=== PATIENT | female | born 1990 | race American Indian/Alaskan Native ===

== ENCOUNTER 2020-04-28 13:45 | Emergency (ER) | payer SELFPAY ==
[2020-04-28 13:54] VITALS: BP 132/86
== END 2020-04-28 16:34 | disposition left against medical advice (07) ==
LOC: ED 13:45
DX: R25.2 Cramp and spasm (principal); Z53.21 Procedure and treatment not carried out due to patient leaving prior to being seen by health care provider

== ENCOUNTER 2020-06-07 07:29 | Emergency (ER) | payer MEDICAID ==
--- NOTE | 2020-06-07 08:57 | Emergency Department Report ---
ED HPI - General Chief complaint: Abdominal Pain Stated complaint: 9WKS PREG CRAMPING Time Seen by Provider: 06/07/20 08:33 Source: patient Mode of arrival: Ambulatory Limitations: No Limitations - History of Present Illness Initial comments: This is a 30-year-old female nontoxic, well nourished in appearance, no acute signs of distress presents to the ED with c/o of vaginal bleeding and pelvic pain x1 day. Patient stated yesterday she noticed some spotting last night.. Patient denies any upper abdominal pain. Patient denies any vaginal discharge or foul odor. Stated she goes about 1-2 pads in 24 hours. Patient denies any nausea, vomiting, chest pain, shortness of breathe, fever, chills, headache, stiff neck, numbness, tingling. Patient denies any urinary symptoms. Patient denies any allergies or PMH. MD Complaint: vaginal bleeding -: days(s) Location: pelvis Radiation: none Severity: mild Severity scale (0 -10): 3 Quality: cramping, aching Consistency: constant Improves with: none Worsens with: none Associated symptoms: vaginal bleeding. denies: nausea/vomiting, vaginal discharge, abdominal pain, dysuria, headache, vision changes, malaise, dy sparuenia, rash, seizure, shortness of breath, syncope, weakness Vaginal bleeding: light :: Yes Number of weeks : 9 Pre-sb care: followed by OB - Related Data Previous Rx's Medication Instructions Recorded Last Taken Type Nitrofurantoin Otoe/M-Cryst 100 mg PO Q12HR #14 capsule 06/07/20 Unknown Rx [Macrobid CAP] Allergies Allergy/AdvReac Type Severity Reaction Status Date / Time No Known Allergies Allergy Unverified 04/28/20 13:51 ED Review of Systems ROS: Stated complaint: 9WKS PREG CRAMPING Other details as noted in HPI Comment: All other systems reviewed and negative Constitutional: denies: chills, fever Eyes: denies: eye pain, eye discharge, vision change ENT: denies: ear pain, throat pain Respiratory: denies: cough, shortness of breath, wheezing Cardiovascular: denies: chest pain, palpitations Endocrine: no symptoms reported Gastrointestinal: denies: abdominal pain, nausea, diarrhea Genitourinary: abnormal menses. denies: urgency, dysuria, frequency, hematuria, discharge Musculoskeletal: denies: back pain, joint swelling, arthralgia Skin: denies: rash, lesions Neurological: denies: headache, weakness, paresthesias Psychiatric: denies: anxiety, depression Hematological/Lymphatic: denies: easy bleeding, easy bruising ED Past Medical Hx - Past Medical History Previous Medical History?: No - Surgical History Past Surgical History?: No - Social History Smoking Status: Never Smoker Substance Use Type: None - Medications Home Medications: Home Medications Medication Instructions Recorded Confirmed Last Taken Type Nitrofurantoin Otoe/M-Cryst 100 mg PO Q12HR #14 capsule 06/07/20 Unknown Rx [Macrobid CAP] ED Physical Exam - General Limitations: No Limitations General appearance: alert, in no apparent distress - Head Head exam: Present: atraumatic, normocephalic - Eye Eye exam: Present: normal appearance - Neck Neck exam: Present: normal inspection, full ROM - Respiratory Respiratory exam: Present: normal lung sounds bilaterally. Absent: respiratory distress, wheezes, rales, rhonchi, stridor, chest wall tenderness, accessory muscle use, decreased breath sounds, prolonged expiratory - Cardiovascular Cardiovascular Exam: Present: regular rate, normal rhythm, normal heart sounds. Absent: bradycardia, tachycardia, irregular rhythm, systolic murmur, diastolic murmur, rubs, gallop - GI/Abdominal GI/Abdominal exam: Present: soft, normal bowel sounds. Absent: distended, tenderness, guarding, rebound, rigid, diminished bowel sounds - Extremities Exam Extremities exam: Present: full ROM - Back Exam Back exam: Present: normal inspection, full ROM. Absent: tenderness, CVA tenderness (R), CVA tenderness (L), muscle spasm, paraspinal tenderness, vertebral tenderness, rash noted - Neurological Exam Neurological exam: Present: alert, oriented X3, normal gait - Psychiatric Psychiatric exam: Present: normal affect, normal mood - Skin Skin exam: Present: warm, dry, intact, normal color. Absent: rash ED Course Vital Signs 06/07/20 07:31 Temperature 98.5 F Pulse Rate 89 Respiratory 16 Rate Blood Pressure 121/84 O2 Sat by Pulse 100 Oximetry - Reevaluation(s) Reevaluation #1: 06/07/20 08:57 Patient is speaking in full sentences with no signs of distress noted. ED Medical Decision Making - Lab Data Result diagrams: 06/07/20 09:02 Lab Results 06/07/20 06/07/20 06/07/20 Range/Units 09:02 09:02 09:02 WBC 5.7 (4.5-11.0) K/mm3 RBC 5.22 H (3.65-5.03) M/mm3 Hgb 12.4 (10.1-14.3) gm/dl Hct 38.3 (30.3-42.9) % MCV 73 L (79-97) fl MCH 24 L (28-32) pg MCHC 32 (30-34) % RDW 18.0 H (13.2-15.2) % Plt Count 329 (140-440) K/mm3 Lymph % (Auto) 33.8 (13.4-35.0) % O[place] % (Auto) 7.9 H (0.0-7.3) % Eos % (Auto) 0.6 (0.0-4.3) % Baso % (Auto) 0.7 (0.0-1.8) % Lymph # (Auto) 1.9 (1.2-5.4) K/mm3 [place] # (Auto) 0.5 (0.0-0.8) K/mm3 Eos # (Auto) 0.0 (0.0-0.4) K/mm3 Baso # (Auto) 0.0 (0.0-0.1) K/mm3 Seg Neutrophils % 57.0 (40.0-70.0) % Seg Neutrophils # 3.3 (1.8-7.7) K/mm3 HCG, Quant 712720 H (0-4) mIU/mL Urine Color (Yellow) Urine Turbidity (Clear) Urine pH (5.0-7.0) Ur Specific [place] (1.003-1.030) Urine Protein (Negative) mg/dL Urine Glucose (UA) (Negative) mg/dL Urine Ketones (Negative) mg/dL Urine Blood (Negative) Urine Nitrite (Negative) Urine Bilirubin (Negative) Urine Urobilinogen (<2.0) mg/dL Ur Leukocyte Esterase (Negative) Urine WBC (Auto) (0.0-6.0) /HPF Urine RBC (Auto) (0.0-6.0) /HPF U Epithel Cells (Auto) (0-13.0) /HPF Urine Mucus /HPF Blood Type O NEGATIVE 06/07/20 Range/Units 10:06 WBC (4.5-11.0) K/mm3 RBC (3.65-5.03) M/mm3 Hgb (10.1-14.3) gm/dl Hct (30.3-42.9) % MCV (79-97) fl MCH (28-32) pg MCHC (30-34) % RDW (13.2-15.2) % Plt Count (140-440) K/mm3 Lymph % (Auto) (13.4-35.0) % [place] % (Auto) (0.0-7.3) % Eos % (Auto) (0.0-4.3) % Baso % (Auto) (0.0-1.8) % Lymph # (Auto) (1.2-5.4) K/mm3 [place] # (Auto) (0.0-0.8) K/mm3 Eos # (Auto) (0.0-0.4) K/mm3 Baso # (Auto) (0.0-0.1) K/mm3 Seg Neutrophils % (40.0-70.0) % Seg Neutrophils # (1.8-7.7) K/mm3 HCG, Quant (0-4) mIU/mL Urine Color Yellow (Yellow) Urine Turbidity Hazy (Clear) Urine pH 7.0 (5.0-7.0) Ur Specific [place] 1.018 (1.003-1.030) Urine Protein 30 mg/dl (Negative) mg/dL Urine Glucose (UA) Neg (Negative) mg/dL Urine Ketones Tr (Negative) mg/dL Urine Blood Mod (Negative) Urine Nitrite Neg (Negative) Urine Bilirubin Neg (Negative) Urine Urobilinogen < 2.0 (<2.0) mg/dL Ur Leukocyte Esterase Sm (Negative) Urine WBC (Auto) 7.0 H (0.0-6.0) /HPF Urine RBC (Auto) 1.0 (0.0-6.0) /HPF U Epithel Cells (Auto) 16.0 H (0-13.0) /HPF Urine Mucus Few /HPF Blood Type - Radiology Data [facility] [address] [place] [address] Ultrasound Report Signed Patient: HOSEA APPIAH MR#: [id number] : 1990 Acct:[id number] Age/Sex: 30 / F ADM Date: 06/07/20 Loc: ED Attending Dr: Ordering Physician: HECTOR SANTANA NP Date of Service: 06/07/20 Procedure(s): US OB <= 14 weeks fetus Accession Number(s): [id number] cc: HECTOR SANTANA NP FIRSTTRIMESTER OBSTETRIC ULTRASOUND HISTORY: Vaginal bleeding with pelvic pain during COMPARISON: None. TECHNIQUE: Routine transabdominal OB ultrasound performed. FINDINGS: Uterus: Mildly enlarged measuring 12.9 x 5.5 x 7.7 cm. Gestational Sac: Well-defined oval shape and intrauterine in location. Yolk Sac: Normal in appearance. Fetus/Embryo: [place]-rump length of 2.88 cm, corresponding to an estimated gestational age of 9 weeks 5 days. Embryonic/ anatomy is too small for evaluation. Embryonic/ cardiac activity: 171bpm Placenta: Too small for evaluation. Amniotic fluid volume: Subjectively appropriate for gestational age. Ovaries: The right ovary measures 3.8 x 2.9 x 4.0 cm and contains a 2.6 cm simple appearing cyst. The left ovary is unremarkable measuring 3.2 x 1.5 x 4.0 cm. Additional findings: 2 small subchorionic hemorrhages are identified along the inferior and superior borders of the gestational sac. IMPRESSION Early live intrauterine . 2 small subchorionic hemorrhages are identified. 2.6 cm right ovarian cyst. Signer Name: Abel Starks Jr, MD Signed: 06/07/2020 10:21 AM Workstation Name: [id number] Transcribed By: TTR Dictated By: ABEL STARKS JR, MD Electronically Authenticated By: ABEL STARKS JR, MD Signed Date/Time: 06/07/20 1021 DD/ 1017 TD/TT: - Medical Decision Making This is a 30-year-old female presents with threatened miscarriage and UTI. Patient is stable and was examined by me. Normal abdominal exam. US OB obtained and dictated by the radiologist. Ua obtained. Quantative serum test obtained. Patient notified of the US report with no questions noted by the patient. Patient was instructed f/u with COUNSELING SERVICES DIRECTOR in 3-5 days. RH factor negative and patient stated that she recently got a RhoGam shot by her COUNSELING SERVICES DIRECTOR for this . Labs within normal limits. At time of discharge, the patient does not seem toxic or ill in appearance. No acute signs of distress noted. Patient agrees to discharge treatment plan of care. No further questions noted by the patient. Critical care attestation.: If time is entered above; I have spent that time in minutes in the direct care of this critically ill patient, excluding procedure time. ED Disposition Clinical Impression: Threatened miscarriage UTI (urinary tract infection) Qualifiers: Urinary tract infection type: acute cystitis Hematuria presence: without hematuria Qualified Code(s): N30.00 - Acute cystitis without hematuria Rh negative status during Qualifiers: Trimester: first trimester Qualified Code(s): O26.891 - Other specified related conditions, first trimester Disposition: TO HOME OR SELFCARE Is pt being admited?: No Does the pt Need Aspirin: No Condition: Stable Instructions: Threatened Miscarriage, Urinary Tract Infection, Adult, Abdominal Pain (ED) Additional Instructions: Follow-up with a COUNSELING SERVICES DIRECTOR doctor in 3-5 days or if symptoms worsen and continue return to emergency room as soon as possible. Prescriptions: Nitrofurantoin Otoe/M-Cryst [Macrobid CAP] 100 mg PO Q12HR #14 capsule Referrals: PRIMARY CARE, [Referring] - 3-5 Days [facility] [Provider Group] - 3-5 Days [facility] [Provider Group] - 3-5 Days [facility] [Provider Group] - 3-5 Days Forms: Work/School Release Form(ED) Time of Disposition: 11:36
[2020-06-07 09:15] LABS: Basophils % (Auto) 0.7 % (0.0-1.8); Eosinophils % (Auto) 0.6 % (0.0-4.3); Hematocrit 38.3 % (30.3-42.9); Hemoglobin 12.4 gm/dl (10.1-14.3); Lymphocytes # (Auto) 1.9 K/mm3 (1.2-5.4); Lymphocytes % (Auto) 33.8 % (13.4-35.0); Mean Corpuscular HGB Conc 32 % (30-34); Mean Corpuscular Volume 73 fl (79-97); Monocytes # (Auto) 0.5 K/mm3 (0.0-0.8); Monocytes % (Auto) 7.9 % (0.0-7.3); Platelet Count 329 K/mm3 (140-440); Red Blood Count 5.22 M/mm3 (3.65-5.03)
--- NOTE | 2020-06-07 10:26 | Ultrasound Report ---
FIRSTTRIMESTER OBSTETRIC ULTRASOUND HISTORY: Vaginal bleeding with pelvic pain during COMPARISON: None. TECHNIQUE: Routine transabdominal OB ultrasound performed. FINDINGS: Uterus: Mildly enlarged measuring 12.9 x 5.5 x 7.7 cm. Gestational Sac: Well-defined oval shape and intrauterine in location. Yolk Sac: Normal in appearance. Fetus/Embryo: [place]-rump length of 2.88 cm, corresponding to an estimated gestational age of 9 weeks 5 days. Embryonic/ anatomy is too small for evaluation. Embryonic/ cardiac activity: 171bpm Placenta: Too small for evaluation. Amniotic fluid volume: Subjectively appropriate for gestational age. Ovaries: The right ovary measures 3.8 x 2.9 x 4.0 cm and contains a 2.6 cm simple appearing cyst. The left ovary is unremarkable measuring 3.2 x 1.5 x 4.0 cm. Additional findings: 2 small subchorionic hemorrhages are identified along the inferior and superior borders of the gestational sac. IMPRESSION Early live intrauterine . 2 small subchorionic hemorrhages are identified. 2.6 cm right ovarian cyst. Signer Name: Abel Stallings Jr, MD Signed: 06/07/2020 10:21 AM Workstation Name: [id number]
[2020-06-07 10:35] LABS: Bilirubin,Urine NEG (Negative); Blood,Urine MOD (Negative); Color,Urine Yellow (Yellow); Mucus,Urine FEW /HPF; Urobilinogen,Urine < 2.0 mg/dL (<2.0)
[2020-06-07 11:51] VITALS: BP 121/87
== END 2020-06-07 11:51 | disposition home or self-care (01) ==
LOC: ED 07:29
DX: O20.0 Threatened abortion (principal); O23.41 Unspecified infection of urinary tract in pregnancy, first trimester; O26.891 Other specified pregnancy related conditions, first trimester; Z3A.09 9 weeks gestation of pregnancy; Z79.899 Other long term (current) drug therapy
CPT/HCPCS: 36415; 76801; 81001; 84702; 85025; 86850; 86900; 86901

== ENCOUNTER 2020-12-22 09:27 | Inpatient (IN) | payer MEDICAID ==
[2020-12-22] MEDS ORDERED: miSOPROStol 200 MCG TAB PR PRN (10:00)
[2020-12-22] MEDS ORDERED: OXYTOCIN DRIP 30 UNITS/500 ML BAG IV SCH ×2 (10:00→16:00)
[2020-12-22] MEDS ORDERED: ACETAMINOPHEN 325 MG TAB PO PRN (10:00)
[2020-12-22] MEDS ORDERED: fentaNYL 100 MCG/2 ML INJ IV PRN (10:00)
[2020-12-22] MEDS ORDERED: LIDOCAINE (2%) 20 MG/1 ML VIAL 20 ML MDV INFILTRATI SCH (10:00)
[2020-12-22] MEDS ORDERED: MINERAL OIL 30 ML ORAL LIQD PO PRN (10:00)
[2020-12-22] MEDS ORDERED: ePHEDrine SULFATE 50 MG/1 ML INJ IV PRN ×2 (10:00→11:00)
[2020-12-22] MEDS ORDERED: BUTORPHANOL 2 MG/1 ML INJ IV PRN (10:00)
[2020-12-22] MEDS ORDERED: NalbUPHINE 10 MG/1 ML INJ IV PRN ×2 (10:00→11:30)
[2020-12-22] MEDS ORDERED: OXYTOCIN 10 UNIT/1 ML INJ IM PRN (10:00)
[2020-12-22] MEDS ORDERED: ONDANSETRON 4 MG/2 ML INJ IV PRN ×2 (10:00→11:00)
[2020-12-22] MEDS ORDERED: METHYLERGONOVINE MALEATE 0.2 MG/ML VIAL IM PRN (10:00)
[2020-12-22] MEDS ORDERED: CARBOPROST TROMETHAMINE 250 MCG/1 ML INJ IM PRN (10:00)
[2020-12-22] MEDS ORDERED: TERBUTALINE 1 MG/1 ML INJ SUB-Q PRN (10:00)
[2020-12-22] MEDS ORDERED: AMPICILLIN/NS 2 GM/100 ML 2 GM/100 ML BAG IV SCH (10:00)
[2020-12-22] MEDS ORDERED: LOPERAMIDE 2 MG CAP PO PRN (10:00)
--- NOTE | 2020-12-22 10:16 | History and Physical Report ---
History of Present Illness Date of examination: 12/22/20 Date of admission: 12/22/2020 Chief complaint: Painful ctxs History of present illness: 30 yo, @ 37.5 wks, initiated care with [place] [facility] professor of biological sciences at 11.4 wks gestation. has been complicated by +GBS in urine, Rh negative status, rubella non-immune status, contractions and silent alpha thalessemia carrier status. She reports to [facility] with reports of frequent painful ctxs and was found to have cervical dilation of 6cm per RN. Reports +FM. Denies VB or LOF at this time. Labs: O negative, antibody negative; HBsAg negative; HIV negative; rubella non-immune; VDRL negative; GC/Chlamydia/Trich negative; 1 hr gtt - 84; GBS positive. Past History Past Medical History: no pertinent history Past Surgical History: no surgical history Family/Genetic History: diabetes Social history: single, lives with family, full code. denies: smoking, alcohol abuse, prescription drug abuse, IV drug use - Obstetrical History Expected Date of Delivery: 01/07/21 Actual Gestation: 37 Week(s) 5 Day(s) : 3 Para: 2 Hx # Term Pregnancies: 2 Number of Pregnancies: 0 Spontaneous Abortions: 0 Induced : 0 Number of Living Children: 2 #1 Gender: Female year: 2,[birth year] Birthweight: 2.268 kg Method of Delivery: Vaginal Gestational age at delivery: 40 Complications: none #2 Infant Gender: Male year: 2,017 Birthweight: 2.268 kg Method of Delivery: Vaginal Gestational age at delivery: 40 Complications: other (Hyperemesis Gravadermiem) Medications and Allergies Allergies Allergy/AdvReac Type Severity Reaction Status Date / Time No Known Allergies Allergy Unverified 04/28/20 13:51 Home Medications Medication Instructions Recorded Confirmed Last Taken Type Pnv No.121/Iron/Folic Acid 1 each PO DAILY 12/22/20 12/22/20 12/21/20 History [ Multivitamin Tablet] Active Meds: Active Medications Acetaminophen (Acetaminophen 325 Mg Tab) 650 mg PO Q4H PRN PRN Reason: Pain, Mild (1-3) Butorphanol Tartrate (Butorphanol 2 Mg/1 Ml Inj) 2 mg IV Q2H PRN PRN Reason: Pain , Severe (7-10) Carboprost Tromethamine (Carboprost Tromethamine 250 Mcg/1 Ml Inj) 250 mcg IM ONCE PRN PRN Reason: Uterine Bleeding Ephedrine Sulfate (Ephedrine Sulfate 50 Mg/1 Ml Inj) 10 mg IV Q2M PRN PRN Reason: Hypotension Fentanyl (Fentanyl 100 Mcg/2 Ml Inj) 100 mcg IV Q2H PRN PRN Reason: Pain,Severe (7-10) LABOR PAIN Lactated Ringer's (Lactated Ringers) 1,000 mls @ 125 mls/hr IV DIRECT [place] Oxytocin/Sodium Chloride (Pitocin/Ns 30 Unit/500ml) 30 units in 500 mls @ 40 mls/hr IV TITR [place]; Protocol Ampicillin Sodium (Ampicillin/Ns 2 Gm/100 Ml) 2 gm in 100 mls @ 100 mls/hr IV ONCE@1000 [place]; Protocol Stop: 12/22/20 15:00 Ampicillin Sodium (Ampicillin/Ns 1 Gm/50 Ml) 1 gm in 50 mls @ 100 mls/hr IV Q4H [place]; Protocol Lidocaine (Lidocaine (2%) 20 Mg/1 Ml Vial 20 Ml Mdv) 20 ml INFILTRATI ONCE@1000 [place] Stop: 12/23/20 09:59 Loperamide HCl (Loperamide 2 Mg Cap) 2 mg PO ONCE PRN PRN Reason: give with Hemabate Methylergonovine Maleate (Methylergonovine Maleate 0.2 Mg/Ml Vial) 0.2 mg IM ONCE PRN PRN Reason: Uterine Bleeding Mineral Oil (Mineral Oil 30 Ml Oral Liqd) 30 ml PO QHS PRN PRN Reason: Constipation Misoprostol (Misoprostol 200 Mcg Tab) 800 mcg AL ONCE PRN PRN Reason: Uterine Bleeding Nalbuphine HCl (Nalbuphine 10 Mg/1 Ml Inj) 10 mg IV Q2H PRN PRN Reason: Pain, Moderate (4-6) Ondansetron HCl (Ondansetron 4 Mg/2 Ml Inj) 4 mg IV Q8H PRN PRN Reason: Nausea And Vomiting Oxytocin (Oxytocin 10 Unit/1 Ml Inj) 10 unit IM ONCE PRN PRN Reason: Uterine Bleeding Terbutaline Sulfate (Terbutaline 1 Mg/1 Ml Inj) 0.25 mg SUB-Q ONCE PRN PRN Reason: Hyperstimulation/Hypertonicity Review of Systems All systems: negative Genitourinary: contractions - Vital Signs Vital signs: Vital Signs Pulse Pulse Ox 97 H 98 12/22/20 09:17 12/22/20 09:17 Temp Pulse Resp BP Pulse Ox 91 H 109/66 97 12/22/20 09:50 12/22/20 09:50 12/22/20 09:50 - Physical Exam Breasts: Positive: normal Cardiovascular: Normal S1 Lungs: Positive: Normal air movement Abdomen: Positive: other (gravid) Genitourinary (Female): Positive: normal external genitalia, normal perenium Vagina: Positive: normal moisture Uterus: Positive: enlarged (S=D) Extremities: Positive: normal Deep Tendon Reflex Grade: Normal +2 - Obstetrical FHR: category 1 Uterine Contraction Monitor Mode: External Cervical Dilatation: 6 Cervical Effacement Percentage: 70 station: -2 Uterine Contraction Frequency (min): 4-6 Uterine Contraction Pattern: Irregular Uterine Tone Measurement Phase: Resting Uterine Contraction Intensity: Moderate Results Result Diagrams: 12/22/20 10:00 All other labs normal. Assessment and Plan - Patient Problems (1) Active labor at term Current Visit: Yes Status: Acute Plan to address problem: Admit to L&D Pain meds/epidural as desired per orders Anticipate (2) GBS (group B streptococcus) UTI complicating Current Visit: Yes Status: Acute Plan to address problem: Initiate GBS protocol (3) Rh negative status during Current Visit: Yes Status: Acute (4) Rubella non-immune status, antepartum Current Visit: Yes Status: Acute (5) Alpha thalassemia silent carrier Current Visit: Yes Status: Acute
[2020-12-22] MEDS: LACTATED RINGERS 1,000 ML IV SCH ×3 (10:26→13:24)
[2020-12-22 10:36] LABS: Hematocrit 35.1 % (30.3-42.9); Hemoglobin 11.5 gm/dl (10.1-14.3); Mean Corpuscular HGB Conc 33 % (30-34); Mean Corpuscular Volume 70 fl (79-97); Platelet Count 278 K/mm3 (140-440); Red Cell Distribution Width 16.5 % (13.2-15.2)
--- NOTE | 2020-12-22 10:46 | Anesthesia Consultation ---
Anesthesia Consult and Med Hx Date of service: 12/22/20 - Airway Anesthetic Teeth Evaluation: Good ROM Head & Neck: Adequate Mental/Hyoid Distance: Adequate Mallampati Class: Class II Intubation Access Assessment: Probably Good - Pulmonary Exam CTA: Yes - Cardiac Exam Cardiac Exam: RRR - Pre-Operative Health Status ASA Pre-Surgery Classification: ASA2 Proposed Anesthetic Plan: Epidural - Pulmonary Hx Smoking: No Hx Asthma: No Hx Sleep Apnea: No - Cardiovascular System Hx Hypertension: No Hx Heart Attack/AMI: No Hx Angina: No - Central Nervous System Hx Seizures: No Hx Psychiatric Problems: No - Gastrointestinal Hx Gastroesophageal Reflux Disease: No - Endocrine Hx Renal Disease: No Hx Liver Disease: No Hx Insulin Dependent Diabetes: No Hx Non-Insulin Dependent Diabetes: No Hx Hypothyroidism: No Hx Hyperthyroidism: No - Hematic Hx Anemia: No Hx Sickle Cell Disease: No - Other Systems Hx Alcohol Use: No
[2020-12-22] MEDS ORDERED: NALOXONE 2 MG/2 ML INJ IV PRN (10:47)
[2020-12-22] MEDS ORDERED: fentaNYL-BUPIV 2 MCG/ML-0.125% 200 MCG/100 ML BAG EPIDURAL SCH (11:00)
[2020-12-22] MEDS ORDERED: diphenhydrAMINE 50 MG/ML VIAL IV PRN (11:00)
[2020-12-22] MEDS ORDERED: LACTATED RINGERS 250 ML IV SOLN IV NR (11:00)
[2020-12-22] MEDS ORDERED: fentaNYL-BUPIV 2 MCG/ML-0.125% 200 MCG/100 ML BAG EPIDURAL ONE (11:00)
[2020-12-22] MEDS ORDERED: BUPIVACAINE/PF (0.25%) 2.5 MG/ML 10 ML VIAL INFILTRATI ONE (11:33)
--- NOTE | 2020-12-22 12:02 | Progress Note ---
Labor Epidural - Labor Epidural Start Time: 11:15 Stop Time: 11:35 Performed by:: ROSELYN REDDY (Performed by Dr Salinas & Thang NOGUEIRA) Procedure: Patient is requesting epidural for labor and pain. H&P, labs were reviewed. Patient IDed, H&P reviewed, all questions and concerns were answered, and consent was signed. Timeout was performed at bedside. Patient in sitting position. Sterile prep and drape was performed. 3ml of 1% lidocaine skin wheal at L[3]- L [4]. 18-gauge hustead epidural needle was advanced to loss of resistance, POSITIVE CSF. Needle removed. 3ml of 1% lidocaine skin wheal at L[2]- L [3]. 18-gauge hustead epidural needle was advanced to loss of resistance at 6cm. Negative CSF Negative blood. Epidural catheter advanced to [11] centimeters. [negative] Aspiration [negative] test dose. Sterile dressing applied. Patient tolerated procedure. Paitent informed of wet tap and verbalized understanding.
[2020-12-22] MEDS: AMPICILLIN/NS 1 GM/50 ML 1 GM/50 ML BAG IV SCH ×2 (14:01→18:09)
[2020-12-22] MEDS ORDERED: PROMETHAZINE 25 MG TAB PO PRN (20:26)
[2020-12-22] MEDS ORDERED: diphenhydrAMINE 25 MG CAP PO PRN (20:26)
[2020-12-22] MEDS ORDERED: LANOLIN/ZINC/DIMETHICONE (LANSINOH) 7 GM TP PRN (20:26)
[2020-12-22] MEDS ORDERED: WITCH HAZEL/ GLYCERIN PAD TP PRN (20:26)
[2020-12-22] MEDS ORDERED: MAGNESIUM HYDROXIDE (MOM) ORAL LIQD UDC PO PRN (20:26)
--- NOTE | 2020-12-22 20:42 | Procedure Note ---
OB Delivery Note - Delivery Date of Delivery: 12/22/20 (2010) Surgeon: ELIOSE ESPINOSA (CNM) Estimated blood loss: 300cc - Vaginal Delivery presentation: vertex Delivery position: OA (UMM) Delivery induction: none Delivery augmentation: rupture of membranes (SROM @ 1536, clear) Delivery monitor: external FHT, external uterine Route of delivery: Delivery placenta: spontaneous (reji, disposed per hospital policy) Delivery cord: nuchal cord (x1, sumersaulted through at delivery), 3 umbilical vessels Episiotomy: none Delivery laceration: none Anesthesia: epidural Delivery comments: of viable, quiet male placed directly on maternal abdomen. Spontaneous cry produced with manual drying and stimulation. Cord double clamped, cut by FOB after cessation of pulsation. Cord blood collected, sent to lab. Placenta spontaneously delivered, disposed per hospital policy. Uterus firm @ U-2, hemostasis maintained. Perineum intact. Mother stable and left in care of RN. Baby at warmer with ANA MARIA team nurse for further assessment. - Infant A at 1 minute: 7 at 5 minutes: 8 Infant Gender: Male (Weight: 2740 gms (6lbs 1 oz) 18.5 inches)
[2020-12-22] MEDS: IBUPROFEN 600 MG TAB PO SCH (21:23)
[2020-12-22] MEDS ORDERED: miSOPROStol 200 MCG TAB PR ONE (21:44)
[2020-12-23] MEDS: oxyCODONE /ACETAMINOPHEN 5-325MG TAB PO PRN ×4 (00:05→20:08)
[2020-12-23] MEDS: IBUPROFEN 600 MG TAB PO SCH ×3 (03:23→18:00)
[2020-12-23 08:38] LABS: Hematocrit 30.3 % (30.3-42.9); Hemoglobin 9.8 gm/dl (10.1-14.3)
--- NOTE | 2020-12-23 08:49 | Progress Note ---
Assessment and Plan - Patient Problems (1) Rh negative status during Current Visit: Yes Status: Acute Plan to address problem: Rhogam workup (2) Rubella non-immune status, antepartum Current Visit: Yes Status: Acute Plan to address problem: Offer MMR vaccine (3) Alpha thalassemia silent carrier Current Visit: Yes Status: Acute (4) Status post normal vaginal delivery Current Visit: Yes Status: Acute Plan to address problem: Continue routine PP orders Methergine 0.2 mg po q 8hrs x 2 days Anticipate d/c home tomorrow if stable Subjective - Subjective Date of service: 12/23/20 Principal diagnosis: S/P ; PPD#1 Interval history: 30 yo, @ 37.5 wks, initiated care with [place] [facility] at 11.4 wks gestation. has been complicated by +GBS in urine, Rh negative status, rubella non-immune status, contractions and silent alpha thalessemia carrier status. She reports to [facility] with reports of frequent painful ctxs and was found to have cervical dilation of 6cm per RN. Reports +FM. Denies VB or LOF at this time. Labs: O negative, antibody negative; HBsAg negative; HIV negative; rubella non-immune; VDRL negative; GC/Chlamydia/Trich negative; 1 hr gtt - 84; GBS positive. Patient reports: appetite normal, voiding normally, pain well controlled (reports some abdominal discomfort), flatus, ambulating normally [place]: doing well, bottle feeding (and ) Objective - Vital Signs Latest vital signs: Vital Signs Temp Pulse Resp BP BP Pulse Ox 12/23/20 08:03 99.0 F 68 18 116/75 99 12/23/20 04:58 98.7 F 87 18 119/75 98 12/22/20 23:50 99.4 F 89 20 124/86 97 12/22/20 23:19 58 L 85 12/22/20 23:16 96 H 100 12/22/20 23:11 94 H 99 12/22/20 23:06 96 H 99 12/22/20 23:03 98.8 F 18 123/72 12/22/20 23:01 111 H 98 12/22/20 22:56 90 100 12/22/20 22:51 95 H 99 12/22/20 22:46 94 H 99 12/22/20 22:41 96 H 100 12/22/20 22:36 104 H 100 12/22/20 22:31 105 H 100 12/22/20 22:26 94 H 100 12/22/20 22:25 126/77 12/22/20 22:21 112 H 99 12/22/20 22:16 114 H 99 12/22/20 22:11 109 H 100 12/22/20 22:06 109 H 99 12/22/20 22:01 106 H 100 12/22/20 21:56 129 H 99 12/22/20 21:51 107 H 100 12/22/20 21:46 130 H 100 12/22/20 21:41 130 H 100 12/22/20 21:36 111 H 100 12/22/20 21:31 96 H 100 12/22/20 21:29 127/64 12/22/20 21:26 117 H 99 12/22/20 21:22 97.7 F 19 121/90 12/22/20 21:21 117 H 99 12/22/20 21:16 119 H 0 L 12/22/20 21:11 115 H 100 12/22/20 21:06 124 H 100 12/22/20 21:01 122 H 99 12/22/20 20:56 144 H 99 12/22/20 20:54 136 H 162/70 12/22/20 20:51 126 H 98 12/22/20 20:49 133 H 133/73 12/22/20 20:47 129 H 93 12/22/20 20:46 129 H 98 12/22/20 20:41 132 H 100 12/22/20 20:36 119 H 100 12/22/20 20:31 124 H 100 12/22/20 20:29 93 H 176/85 12/22/20 20:26 122 H 99 12/22/20 20:21 112 H 96 12/22/20 20:16 110 H 99 12/22/20 20:11 113 H 100 12/22/20 20:07 53 L 68 L 12/22/20 20:06 107 H 98 12/22/20 20:01 98 H 55 L 12/22/20 19:56 69 83 L 12/22/20 19:51 100 H 100 12/22/20 19:46 84 100 12/22/20 19:44 69 22 L 12/22/20 19:41 101 H 100 12/22/20 19:36 99 H 99 12/22/20 19:33 79 89 12/22/20 19:31 82 100 12/22/20 19:26 101 H 100 12/22/20 19:20 88 96 12/22/20 19:15 93 H 97 12/22/20 19:11 77 93 12/22/20 19:10 93 H 95 12/22/20 19:05 99 H 100 12/22/20 19:01 98 H 94 12/22/20 19:00 105 H 94 12/22/20 18:58 17 12/22/20 18:55 115 H 98 12/22/20 18:52 85 12/22/20 18:50 47 L 75 L 12/22/20 18:45 79 L 12/22/20 18:42 92 12/22/20 18:40 62 100 12/22/20 18:35 44 L 98 12/22/20 18:34 100 H 89 12/22/20 18:29 48 L 100 12/22/20 18:28 97 H 92 12/22/20 18:24 82 96 12/22/20 18:22 88 90 12/22/20 18:18 111 H 99 12/22/20 18:13 108 H 84 12/22/20 18:08 109 H 96 12/22/20 18:07 78 111/55 12/22/20 18:05 98 H 92 12/22/20 18:03 80 100 12/22/20 17:58 97 H 96 12/22/20 17:55 74 87 12/22/20 17:53 100 H 102/50 92 12/22/20 17:50 83 L 12/22/20 17:48 52 L 94 12/22/20 17:45 68 88 12/22/20 17:43 72 98 12/22/20 17:38 67 105/58 100 12/22/20 17:33 67 100 12/22/20 17:28 82 99 12/22/20 17:23 62 100 12/22/20 17:21 69 107/59 12/22/20 17:18 70 100 12/22/20 17:13 63 100 12/22/20 17:08 73 100 12/22/20 17:07 64 110/60 12/22/20 17:03 61 100 12/22/20 16:58 61 100 12/22/20 16:53 63 100 12/22/20 16:52 57 L 117/63 12/22/20 16:48 70 100 12/22/20 16:43 67 100 12/22/20 16:38 74 100 12/22/20 16:36 75 101/56 12/22/20 16:33 72 100 12/22/20 16:28 74 100 12/22/20 16:23 69 100 12/22/20 16:22 72 117/65 12/22/20 16:18 86 100 12/22/20 16:15 97 H 93 12/22/20 16:13 73 100 12/22/20 16:08 87 99 12/22/20 16:07 73 109/55 12/22/20 16:03 86 100 12/22/20 15:58 85 99 12/22/20 15:53 74 100 12/22/20 15:52 85 99/56 12/22/20 15:48 78 100 12/22/20 15:43 74 100 12/22/20 15:38 90 104/66 100 12/22/20 15:35 98.8 F 12/22/20 15:33 92 H 100 12/22/20 15:28 89 100 12/22/20 15:23 80 100 12/22/20 15:21 99 H 112/68 12/22/20 15:18 84 98 12/22/20 15:13 81 97 12/22/20 15:08 103 H 99 12/22/20 15:07 97 H 117/74 12/22/20 15:03 93 H 100 12/22/20 14:58 96 H 100 12/22/20 14:53 92 H 100 12/22/20 14:52 87 110/66 12/22/20 14:48 94 H 100 12/22/20 14:43 91 H 100 12/22/20 14:38 80 100 12/22/20 14:36 87 104/64 12/22/20 14:33 76 100 12/22/20 14:28 89 100 12/22/20 14:23 84 100 12/22/20 14:21 82 114/67 12/22/20 14:18 78 100 12/22/20 14:13 78 100 12/22/20 14:08 88 100 12/22/20 14:07 79 115/62 12/22/20 14:03 88 97 12/22/20 13:58 78 99 12/22/20 13:53 71 99 12/22/20 13:52 72 121/69 12/22/20 13:48 81 99 12/22/20 13:43 75 98 12/22/20 13:38 76 97 12/22/20 13:33 77 96 12/22/20 13:28 89 95 12/22/20 13:26 86 94 12/22/20 13:23 68 96 12/22/20 13:21 80 100/57 12/22/20 13:18 88 95 12/22/20 13:15 90 112/68 12/22/20 13:13 83 97 12/22/20 13:08 74 95 12/22/20 13:06 85 95/54 12/22/20 13:03 82 95 12/22/20 13:01 81 108/59 12/22/20 12:58 85 95 12/22/20 12:56 81 101/55 12/22/20 12:53 81 96 12/22/20 12:50 70 109/53 12/22/20 12:48 67 98 12/22/20 12:46 72 115/62 12/22/20 12:43 74 98 12/22/20 12:40 67 106/54 12/22/20 12:38 69 98 12/22/20 12:35 72 102/54 12/22/20 12:33 75 97 12/22/20 12:29 67 113/57 12/22/20 12:28 74 99 12/22/20 12:25 77 100/51 12/22/20 12:23 80 98 12/22/20 12:20 142 H 114/66 12/22/20 12:18 86 99 12/22/20 12:14 64 121/58 12/22/20 12:13 62 100 12/22/20 12:12 75 127/60 12/22/20 12:08 76 98 12/22/20 12:07 73 86/48 12/22/20 12:06 83 94 12/22/20 12:03 86 86/50 96 12/22/20 12:01 85 94 12/22/20 11:59 74 111/59 12/22/20 11:58 71 98 12/22/20 11:54 89 101/57 12/22/20 11:53 89 97 12/22/20 11:48 86 97 12/22/20 11:47 86 120/63 12/22/20 11:43 84 97 12/22/20 11:42 83 114/60 12/22/20 11:38 80 99 12/22/20 11:37 83 123/73 12/22/20 11:33 86 100 12/22/20 11:32 91 H 129/77 12/22/20 11:30 81 134/67 12/22/20 11:28 87 100 12/22/20 11:27 87 120/58 12/22/20 11:24 85 133/62 12/22/20 11:23 83 99 12/22/20 11:18 78 100 12/22/20 11:17 88 111/60 12/22/20 11:13 88 100 12/22/20 11:12 80 123/71 12/22/20 11:08 88 100 12/22/20 11:07 78 L 12/22/20 11:03 89 99 12/22/20 10:58 82 100 12/22/20 10:53 91 H 100 12/22/20 10:52 97 H 88 12/22/20 10:48 86 97 12/22/20 10:43 86 92 12/22/20 10:42 76 87 12/22/20 10:38 97 H 91 12/22/20 10:30 79 98 12/22/20 10:25 98 H 95 12/22/20 10:23 85 93 12/22/20 10:20 92 H 96 12/22/20 10:15 97 H 97 12/22/20 10:10 97.5 F L 74 18 100 12/22/20 10:05 84 96 12/22/20 10:00 94 H 95 12/22/20 09:57 77 94 12/22/20 09:55 100 H 98 12/22/20 09:50 91 H 109/66 97 12/22/20 09:49 101 H 94 12/22/20 09:45 100 H 97 12/22/20 09:27 88 97 12/22/20 09:22 102 H 97 12/22/20 09:17 97 H 98 Intake and Output 12/22/20 12/23/20 12/23/20 23:59 07:59 15:59 Intake Total 3.866 40 Output Total 450 600 Balance -446.134 -560 Intake: IV 3.866 40 Left Wrist 40 PITOCin/NS 30 UNIT/500ML 3.866 30 units In 500 ml @ 2 mls/hr IV TITR [place] Rx#: [id number] Output: Urine 450 600 Indwelling Catheter 450 Void 600 Other: Total, Output Amount 300 600 # Voids Void 1 - Exam Breasts: Present: normal Cardiovascular: Present: Regular rate Lungs: Present: Normal air movement Abdomen: Present: soft, tenderness Uterus: Present: firm, fundal height below umbilicus (U-1) Extremities: Present: normal Deep Tendon Reflex Grade: Normal +2 - Labs Labs: Abnormal lab results 12/22/20 Range/Units 10:00 MCV 70 L (79-97) fl MCH 23 L (28-32) pg RDW 16.5 H (13.2-15.2) %
[2020-12-23] MEDS: METHYLERGONOVINE 0.2 MG TABLET PO SCH ×2 (10:11→17:41)
[2020-12-23] MEDS: PRENATAL VIT27-FE FUMARATE-FOLIC ACID VIT TAB PO SCH (10:14)
--- NOTE | 2020-12-23 20:19 | Post Anesthesia Evaluation ---
- Post Anesthesia Evaluation Patient Participated: Yes Airway Patent: Yes Stable Respiratory Function: Yes Nausea/Vomiting: No Temp > 96.8F: Yes Pain Manageable: Yes Adequeate Hydration: Yes Anesthesia Complications: No Block Receding Appropriately: Yes
[2020-12-24] MEDS: METHYLERGONOVINE 0.2 MG TABLET PO SCH ×2 (02:12→09:58)
[2020-12-24] MEDS: IBUPROFEN 600 MG TAB PO SCH ×3 (05:24→11:21)
[2020-12-24] MEDS: PRENATAL VIT27-FE FUMARATE-FOLIC ACID VIT TAB PO SCH (09:58)
--- NOTE | 2020-12-24 11:15 | Progress Note ---
Assessment and Plan - Patient Problems (1) Active labor at term Current Visit: Yes Status: Acute Plan to address problem: Patient doing well Discharge home Subjective - Subjective Date of service: 12/24/20 Principal diagnosis: S/P ; PPD#1 Interval history: Patient without any significant complaints. Her pain is well controlled. Patient reports: appetite normal, voiding normally, pain well controlled : doing well Objective - Vital Signs Latest vital signs: Vital Signs Temp Pulse Resp BP Pulse Ox Pulse Ox 12/24/20 08:19 97.5 F L 60 18 119/77 100 12/24/20 08:00 98 12/24/20 06:24 18 12/24/20 05:24 18 12/24/20 01:35 98.0 F 66 16 117/74 99 12/24/20 01:00 18 12/24/20 00:00 18 12/23/20 21:08 18 12/23/20 20:08 20 12/23/20 20:00 100 12/23/20 19:00 18 12/23/20 17:23 98.1 F 67 18 112/75 100 12/23/20 12:47 98.0 F 77 18 126/87 99 Intake and Output 12/23/20 12/24/20 12/24/20 22:59 06:59 14:59 Intake Total 840 360 Balance 840 360 Intake: Oral 480 Intake, Free Water 360 360 Other: Total, Intake Amount 480 # Voids Void 2 1
--- NOTE | 2020-12-24 11:17 | Discharge Summary ---
Providers - Providers Date of Admission: 12/22/20 20:27 Date of discharge: 12/24/20 Attending physician: NAYELI MILTON Primary care physician: NAYELI MILTON Hospitalization Reason for admission: active labor Delivery: Discharge diagnosis: IUP at term delivered Hospital course: The patient was admitted in active labor and had a successful vaginal delivery. Her course was uneventful. Condition at discharge: Good Disposition: 01 HOME / SELF CARE / HOMELESS - Discharge Diagnoses (1) Active labor at term Status: Acute Plan - Discharge Medications Prescriptions: Ibuprofen [Motrin] 800 mg PO Q8HR PRN #30 tablet PRN Reason: Pain , Severe (7-10) HYDROcodone/APAP 5-325 [[place] 5/325] 1 each PO Q6HR PRN #15 tablet PRN Reason: Pain - Provider Discharge Summary Activity: no sex for 6 weeks, no heavy lifting 4 weeks, no strenuous exercise Diet: routine Instructions: routine Additional instructions: [] Smoking cessation referral if applicable(refer to patient education folder for contact #) [] Refer to [facility]'s [facility] Booklet Call your doctor immediately for: * Fever > 100.5 * Heavy vaginal bleeding ( >1 pad per hour) * Severe persistent headache * Shortness of breath * Reddened, hot, painful area to leg or breast * Schedule visit in 4 weeks - Follow up plan Forms: [facility] Discharge Summary
[2020-12-24 11:54] VITALS: BP 130/78
== END 2020-12-24 12:45 | disposition home or self-care (01) | DRG 775 ==
LOC: TRG 09:27 → APU 09:27 → LD 09:27 → TRG 20:27 → LD 20:27 → OB 23:28
PROVIDERS: ADMIT Obstetrics & Gynecology; ATTEND Obstetrics & Gynecology
PROC: 10E0XZZ Delivery of Products of Conception, External Approach (ICD-10-PCS; principal; 2020-12-22)
DX: O99.824 Streptococcus B carrier state complicating childbirth (principal); Z37.0 Single live birth; Z3A.37 37 weeks gestation of pregnancy; D56.3 Thalassemia minor; O69.81X0 Labor and delivery complicated by cord around neck, without compression, not applicable or unspecified; O75.89 Other specified complications of labor and delivery; Z20.822 Contact with and (suspected) exposure to COVID-19; O26.893 Other specified pregnancy related conditions, third trimester; Z67.41 Type O blood, Rh negative
CPT/HCPCS: 36415; 85014; 85018; 85027; 85461; 86850; 86900; 86901; G0378; J0290; J2590; J2790; J7120; U0003

== ENCOUNTER 2021-01-29 13:11 | Emergency (ER) | payer MEDICAID ==
[2021-01-29 14:13] VITALS: BP 140/90
--- NOTE | 2021-01-29 14:38 | Emergency Department Report ---
ED ENT HPI - General Chief complaint: Dental/Oral Stated complaint: LIPS HURT ADN SWOLLEN Time Seen by Provider: 01/29/21 14:27 Source: patient Mode of arrival: Ambulatory Limitations: No Limitations - History of Present Illness Initial comments: Patient is a 30-year-old female presents emergency room complaints of pain to her tongue and her lips that began a week ago. She states that she has associated swelling. She states that she feels like she has bumps in her mouth. She denies ever having this in the past. She denies any fever, nausea, vomi ting, diarrhea, unable to swallow, difficulty breathing. Patient denies any past medical history. No allergies to medications. - Related Data Home Medications Medication Instructions Recorded Confirmed Last Taken Pnv No.121/Iron/Folic Acid 1 each PO DAILY 12/22/20 12/22/20 12/21/20 [ Multivitamin Tablet] Previous Rx's Medication Instructions Recorded Last Taken Type HYDROcodone/APAP 5-325 [[place] 1 each PO Q6HR PRN #15 tablet 12/24/20 Unknown Rx 5/325] Ibuprofen [Motrin] 800 mg PO Q8HR PRN #30 tablet 12/24/20 Unknown Rx Ibuprofen [Motrin 600 MG tab] 600 mg PO Q8H PRN #14 tablet 01/29/21 Unknown Rx Lidocaine Viscous 2% 15 ml MM TID PRN #200 ml 01/29/21 Unknown Rx Nystatin [Nystatin SUSP] 5 ml PO QID 10 Days #200 ml 01/29/21 Unknown Rx Allergies Allergy/AdvReac Type Severity Reaction Status Date / Time No Known Allergies Allergy Unverified 04/28/20 13:51 ED Dental HPI - General Chief complaint: Dental/Oral Stated complaint: LIPS HURT ADN SWOLLEN Time Seen by Provider: 01/29/21 14:27 Source: patient Mode of arrival: Ambulatory Limitations: No Limitations - Related Data Home Medications Medication Instructions Recorded Confirmed Last Taken Pnv No.121/Iron/Folic Acid 1 each PO DAILY 12/22/20 12/22/20 12/21/20 [ Multivitamin Tablet] Previous Rx's Medication Instructions Recorded Last Taken Type HYDROcodone/APAP 5-325 [[place] 1 each PO Q6HR PRN #15 tablet 12/24/20 Unknown Rx 5/325] Ibuprofen [Motrin] 800 mg PO Q8HR PRN #30 tablet 12/24/20 Unknown Rx Ibuprofen [Motrin 600 MG tab] 600 mg PO Q8H PRN #14 tablet 01/29/21 Unknown Rx Lidocaine Viscous 2% 15 ml MM TID PRN #200 ml 01/29/21 Unknown Rx Nystatin [Nystatin SUSP] 5 ml PO QID 10 Days #200 ml 01/29/21 Unknown Rx Allergies Allergy/AdvReac Type Severity Reaction Status Date / Time No Known Allergies Allergy Unverified 04/28/20 13:51 ED Review of Systems ROS: Stated complaint: LIPS HURT ADN SWOLLEN Other details as noted in HPI Comment: All other systems reviewed and negative ED Past Medical Hx - Past Medical History Previous Medical History?: No Hx Hypertension: No Hx Heart Attack/AMI: No Hx Diabetes: No Hx Deep Vein Thrombosis: No Hx Liver Disease: No Hx Renal Disease: No Hx Sickle Cell Disease: No Hx Seizures: No Hx Asthma: No Hx HIV: No - Social History Smoking Status: Never Smoker - Medications Home Medications: Home Medications Medication Instructions Recorded Confirmed Last Taken Type Pnv No.121/Iron/Folic Acid 1 each PO DAILY 12/22/20 12/22/20 12/21/20 History [ Multivitamin Tablet] HYDROcodone/APAP 5-325 [[place] 1 each PO Q6HR PRN #15 tablet 12/24/20 Unknown Rx 5/325] Ibuprofen [Motrin] 800 mg PO Q8HR PRN #30 tablet 12/24/20 Unknown Rx Ibuprofen [Motrin 600 MG tab] 600 mg PO Q8H PRN #14 tablet 01/29/21 Unknown Rx Lidocaine Viscous 2% 15 ml MM TID PRN #200 ml 01/29/21 Unknown Rx Nystatin [Nystatin SUSP] 5 ml PO QID 10 Days #200 ml 01/29/21 Unknown Rx ED Physical Exam - General Limitations: No Limitations General appearance: alert, in no apparent distress - Head Head exam: Present: atraumatic, normocephalic - Eye Eye exam: Present: normal appearance - ENT ENT exam: Present: mucous membranes moist, other (thick white plaques present to the tongue, very small erythematous papules present to the gums and inside of the lip, no blistering, no skin denuding, no ulceration) - Neurological Exam Neurological exam: Present: alert, oriented X3 - Psychiatric Psychiatric exam: Present: normal affect, normal mood - Skin Skin exam: Present: warm, dry, intact ED Course Vital Signs 01/29/21 14:12 Temperature 98.2 F Pulse Rate 63 Respiratory 20 Rate Blood Pressure 140/90 [Right] O2 Sat by Pulse 100 Oximetry ED Medical Decision Making - Medical Decision Making Patient is a 30-year-old female presents emergency room complaints of pain to her tongue and her lips that began a week ago. She states that she has associated swelling. She states that she feels like she has bumps in her mouth. She denies ever having this in the past. She denies any fever, nausea, vomiting, diarrhea, unable to swallow, difficulty breathing. Patient denies any past medical history. No allergies to medications. Vitals are stable. On exam:thick white plaques present to the tongue, very small erythematous papules present to the gums and inside of the lip, no blistering, no skin denuding, no ulceration. Examination presents distant with oropharyngeal candidiasis. Patient given prescription for medication. Discussed the importance of outpatient follow-up for reexamination. Advised patient Please use medication as prescribed. Please follow-up with a primary care doctor for reexamination and further evaluation. Return to emergency room for any new or worsening symptoms. Critical care attestation.: If time is entered above; I have spent that time in minutes in the direct care of this critically ill patient, excluding procedure time. ED Disposition Clinical Impression: Oral thrush Disposition: 01 HOME / SELF CARE / HOMELESS Is pt being admited?: No Does the pt Need Aspirin: No Condition: Stable Instructions: Oral Thrush, Adult Additional Instructions: Please use medication as prescribed. Please follow-up with a primary care doctor for reexamination and further evaluation. Return to emergency room for any new or worsening symptoms. Prescriptions: Lidocaine Viscous 2% 15 ml MM TID PRN #200 ml PRN Reason: pain Ibuprofen [Motrin 600 MG tab] 600 mg PO Q8H PRN #14 tablet PRN Reason: Pain Nystatin [Nystatin SUSP] 5 ml PO QID 10 Days #200 ml Referrals: ROLANDO CRESPO MD [Staff Physician] - 3-[address] [facility] [Provider Group] - 3-5 Days PHIL GAGE MD [Staff Physician] - 3-5 Days Time of Disposition: 14:35 Print Language: [id number]
== END 2021-01-29 15:26 | disposition home or self-care (01) ==
LOC: ED 13:11
DX: B37.0 Candidal stomatitis (principal)
CPT/HCPCS: 99282

== ENCOUNTER 2021-03-18 06:41 | Emergency (ER) | payer MEDICAID ==
[2021-03-18 06:46] VITALS: BP 124/93
== END 2021-03-18 14:01 | disposition home or self-care (01) ==
LOC: ED 06:41
DX: R51.9 Headache, unspecified (principal); Z53.21 Procedure and treatment not carried out due to patient leaving prior to being seen by health care provider